=== PATIENT | female | born 1980 | race Caucasian/White ===

== ENCOUNTER → 2019-01-27 | Outpatient (CLI) | payer OTHER ==
--- NOTE | 2019-01-28 08:29 | MM ---
Reason for exam: screening (asymptomatic). Baseline mammogram. History: Benign excisional biopsy of the right breast, 2012. Took hormonal contraceptives beginning at age 15. Physical Findings: Nurse did not find any significant physical abnormalities on exam. MG 3D Screening Mammo W/Cad Bilateral CC and MLO view(s) were taken. The breast tissue is extremely dense which could obscure a lesion on mammography. Benign appearing calcifications in the right breast. Left axillary accessory breast tissue. These results were verbally communicated with the patient and result sheet given to the patient on 01/27/19. ASSESSMENT: Benign, BI-RAD 2 RECOMMENDATION: Routine screening mammogram of both breasts in 1 year.
== END | disposition home or self-care (01) ==
LOC: RADMAMWWP 15:18
PROVIDERS: ATTEND Family Medicine
DX: Z12.31 Encounter for screening mammogram for malignant neoplasm of breast (principal); Z98.890 Other specified postprocedural states
CPT/HCPCS: 77063; 77067

== ENCOUNTER → 2019-03-19 | Outpatient (CLI) | payer OTHER ==
[2019-03-19 16:31] LABS: Basophils % (A) 1 %; Eosinophils # (A) 0.3 k/uL (0-0.7); Eosinophils % (A) 4 %; HCT 37.1 % (34.0-46.0); HGB 12.3 gm/dL (11.4-16.0); Lymphocytes # (A) 2.3 k/uL (1.0-4.8); Lymphocytes % (A) 32 %; MCH 31.9 pg (25.0-35.0); MCV 96.6 fL (80.0-100.0); Mean Platelet Volume 7.6; Monocytes # (A) 0.3 k/uL (0-1.0); Monocytes % (A) 4 %; Neutrophils # (A) 4.2 k/uL (1.3-7.7); Neutrophils % (A) 58 %; Platelet Count 305 k/uL (150-450); RBC 3.84 m/uL (3.80-5.40); RDW 13.7 % (11.5-15.5); WBC 7.2 k/uL (3.8-10.6)
[2019-03-19 23:45] LABS: African American GFR (CKD) 125.6 (60.0-200.0); Anion Gap 6.4 mmol/L (4.00-12.00); Calcium 8.8 mg/dL (8.7-10.3); Carbon Dioxide 27.6 mmol/L (21.6-31.8); Potassium 3.5 mmol/L (3.5-5.5)
== END | disposition home or self-care (01) ==
LOC: LABWHC1 16:01
PROVIDERS: ATTEND Obstetrics & Gynecology
DX: Z01.812 Encounter for preprocedural laboratory examination (principal)
CPT/HCPCS: 36415; 80048; 85025

== ENCOUNTER 2019-03-26 07:56 | Observation (INO) | payer OTHER ==
[2019-03-18 15:44] VITALS: BMI 23.6
--- NOTE | 2019-03-25 16:59 | P.HPOB ---
History of Present Illness H&P Date: 03/25/19 Chief Complaint: Pelvic pain and fibroids Katarzyna is a 38-year-old female who has a 5 cm fibroid noted on ultrasound and she has a long history of very heavy vaginal bleeding. That stated, her bigger problem right now is that she has severe pain each time she has a cycle due to how heavy the bleeding as and passage of clots. She is unable to function well and with an enlarged uterus she has scheduled a robotic-assisted laparoscopic hysterectomy possible STUART and BSO. Likely remove fallopian tubes at the same time. Risks/benefits/alternatives were reviewed with the patient in detail all questions were answered for her prior to proceeding to the operative room. She does have a history of sections 2 which does increase her risk for bladder injury and she is already aware of this. On physical exam vital signs are stable and afebrile. Heart regular, lungs clear, extremities without pain. Abdomen soft and nontender. Positive bowel sounds are noted. Pelvic exam is otherwise unremarkable. Assessment fibroid uterus and pelvic pain Robotic-assisted laparoscopic hysterectomy possible STUART possible BSO Past Medical History Past Medical History: No Reported History History of Any Multi-Drug Resistant Organisms: None Reported Past Surgical History: Breast Surgery, Section Additional Past Surgical History / Comment(s): benign lump removed from breast, C/S x2 Past Anesthesia/Blood Transfusion Reactions: No Reported Reaction Smoking Status: Current every day smoker - Past Family History Mother Family Medical History: No Reported History Medications and Allergies Home Medications Medication Instructions Recorded Confirmed Type No Known Home Medications 03/18/19 03/18/19 History Allergies Allergy/AdvReac Type Severity Reaction Status Date / Time No Known Allergies Allergy Verified 03/18/19 15:21 Exam Osteopathic Statement: *. No significant issues noted on an osteopathic structural exam other than those noted in the History and Physical/Consult.
[~2019-03-26 07:56] MED LIST: DEXAMETHASONE SOD PHOSPHATE 10 MG/ML 1 ML VIAL IV ONE; LIDOCAINE 1% 20 ML VIAL (10MG/ML) FOR IV START INTRADERMA PRN; ONDANSETRON 4 MG/2 ML VIAL IVP ONE; SCOPOLAMINE 1.5MG/72HR PATCH TRANSDERM ONE
[2019-03-26] MEDS: LACTATED RINGERS 1,000 ML IV SCH (08:47)
[2019-03-26] MEDS ORDERED: MIDAZOLAM (PF) 2 MG/2 ML VIAL IV ONE (08:57)
[2019-03-26] MEDS ORDERED: PROPOFOL 10 MG/ML 20 ML VIAL IV ONE (10:09)
[2019-03-26] MEDS ORDERED: GLYCOPYRROLATE 0.2 MG/ML 2 ML VIAL ONE (10:09)
[2019-03-26] MEDS ORDERED: NEOSTIGMINE 1 MG/ML 10 ML VIAL ONE (10:09)
[2019-03-26] MEDS ORDERED: ROCURONIUM BROMIDE 10 MG/ML 10 ML VIAL IV ONE (10:09)
[2019-03-26] MEDS ORDERED: MIDAZOLAM 2 MG/2 ML VIAL ONE (10:09)
[2019-03-26] MEDS ORDERED: fentaNYL (PF) 50 MCG/ML 2 ML AMP ONE (10:09)
[2019-03-26] MEDS ORDERED: SUCCINYLCHOLINE CHLORIDE 100 MG/5 ML SYR IV ONE (10:09)
[2019-03-26] MEDS ORDERED: PHENYLEPHRINE-0.9% NACL SYG 1 MG/10 ML SYRINGE ONE (10:09)
[2019-03-26] MEDS ORDERED: BUPIVACAINE (PF) 0.25% 30 ML VIAL SQ ONE (10:49)
[2019-03-26] MEDS ORDERED: LACTATED RINGERS 1,000 ML IV ONE (11:45)
[2019-03-26] MEDS ORDERED: ONDANSETRON 4 MG/2 ML VIAL IVP PRN (11:47)
--- NOTE | 2019-03-26 12:00 | P.OP ---
Date of Procedure: 03/26/19 Preoperative Diagnosis: Menorrhagia, pelvic pain, fibroid uterus Postoperative Diagnosis: Same Procedure(s) Performed: Robotic-assisted laparoscopic hysterectomy with bilateral salpingectomy Anesthesia: JENNA Surgeon: Ever Wallace Legal Support Manager #1: Theresa Rodriguez Estimated Blood Loss (ml): 50 IV fluids (ml): 1,100 Urine output (ml): 50 Pathology: other (Uterus, cervix, fallopian tubes) Condition: stable Disposition: same day Operative Findings: Scarring of the appendix and a; scissor right abdominal sidewall no other gross findings tissue pathology pending Description of Procedure: Patient was taken to the operating suite where a general anesthetic was found be adequate. She was prepped and draped in normal sterile fashion and placed in dorsal lithotomy position. Initially a weighted speculum was inserted into the vagina and into lip of cervix was identified and grasped with a single-tooth tenaculum. Cervix was then dilated and sounded to 10 cm and a Ronda manipulator was inserted with a 10 cm tip and a 3 cm cup. Stay sutures were placed at 3 and 9. Other instruments were then removed and Forte catheter was placed. Gloves were then changed and attention was turned to the abdominal portion procedure where 2 mL a course of Marcaine was injected 1 cm of the above the umbilicus. Through this a 5 mm skin incision was made and through this incision under direct visualization with an optical trocar and sleeve the camera was inserted. Once peritoneal placement was assured gas was left fully insufflate the abdomen and patient was then placed in steep Trendelenburg position. 2 lateral ports were then placed on the plane of the umbilicus 10 cm lateral on both right and left side and then a fourth port and sleeve was placed between the left lateral and the medial port. This was through once meter incision. Camera port was exchanged for a robotic port and robot was brought in and docked. Using a scissor and the one arm and Maryland grasper in the 2 arm I broke scrub and went to the console. Observations pelvis were noted. Uterus was then elevated and tipped the right-hand side and the fallopian tube was elevated and cauterizing through the mesosalpinx fallopian tube was cut and cauterized to 2 cm from uterine cornu and then excised and removed from the operative field as was occluding condition. Once this was accomplished utero-ovarian ligament was identified cauterized and cut probably with tissues to the round ligament was then cauterized and cut around leg was again cauterized and transected. Anterior and posterior leafs of the broad lid were then developed and skeletonization vascular was done. Some cauterization the uterine vascular and the left side was then accomplished and bladder flap was identified elevated and entered with Metzenbaums mom scissor. This opening was then extended across the face the uterus using Maryland undermining the tissue and scissor to expel in size. Once all the way across the uterus bladder was bluntly dissected out of the operative field. In a similar fashion the right side of the uterus was then developed. Verifying bladder out of the operative field balloon was blown up in the Ronda manipulator and the cup was identified. Anterior colpotomy was then done and then this opening was carried around the cervix in a counterclockwise fashion circumferentially until 360 was completed. When necessary she had was done to maintain excellent hemostasis throughout this process. Once fully completed uterus was brought into the vagina to maintain pneumoperitoneum. Irrigation and suction the fluid was then performed good hemostasis was noted across all pedicles. Instruments were then exchanged for a make suture cut and Jose Luis grasper and the vaginal cuff was closed with 20 the lock suture in a running fashion. Once completed again the pelvis was irrigated. No bleeding is noted. Therefore all instruments removed gas was allowed to expel from the abdomen. 5 deep breaths were provided during this process. Dr. Rodriguez then close incision subcuticularly with 4-0 Vicryl following removal of the robot from the field. Concurrently I did a cystoscopy and excellent flow was noted from both ureteral jets. The remaining 8 mL of quarter percent Marcaine was injected around the incisions. Sponge, lap, needle counts were all correct 2. Patient was then taken to the recovery room in stable and satisfactory condition.
[2019-03-26] MEDS: HYDROmorphone 0.5 MG/0.5 ML SYRINGE IVP PRN ×4 (12:13→12:48)
[2019-03-26] MEDS: KETOROLAC 30 MG/ML 1 ML VIAL IVP PRN ×2 (12:19→20:35)
[2019-03-26] MEDS: SENNOSIDES-DOCUSATE SODIUM 1 EACH TAB PO SCH (20:34)
[2019-03-26 22:43] VITALS: RESP 18
[2019-03-27] MEDS: KETOROLAC 30 MG/ML 1 ML VIAL IVP PRN (04:41)
[2019-03-27] MEDS: LACTATED RINGERS 1,000 ML IV SCH (04:59)
[2019-03-27] MEDS: SENNOSIDES-DOCUSATE SODIUM 1 EACH TAB PO SCH (08:09)
[2019-03-27] MEDS ORDERED: IBUPROFEN 600 MG TAB PO PRN (08:09)
[2019-03-27] MEDS: HYDROcodone/APAP 7.5-325MG 1 EACH TAB PO PRN ×2 (08:09→14:07)
--- NOTE | 2019-03-27 08:14 | P.DS ---
Providers Date of admission: 03/27/19 04:41 Expected date of discharge: 03/27/19 Attending physician: Ever Wallace Primary care physician: Shavonne Leyva - Discharge Diagnosis(es) (1) History of robot-assisted laparoscopic hysterectomy Current Visit: Yes Status: Acute Hospital Course: Pt presented for TLH BS with da leeanna. She underwent this procedure without complication. Postoperatively her pain was controlled with Toradol at first and then Hope and Motrin. Her incisions are clean, dry, intact. She is voiding and ambulating without difficulty. She denies nausea, vomiting, chest pain, shortness of breath or calf pain. She'll be discharged home postoperative day #1 in stable condition to follow-up with Dr. Wallace in 1 week. Patient Condition at Discharge: Good Plan - Discharge Summary Discharge Rx Participant: Yes New Discharge Prescriptions: New Ibuprofen [Motrin] 600 mg PO Q6H PRN #30 tab PRN Reason: Pain HYDROcodone/APAP 7.5-325MG [Hope 7.5-325] 1 each PO Q6H PRN #12 tab PRN Reason: SEVERE Pain Discharge Medication List HYDROcodone/APAP 7.5-325MG [Hope 7.5-325] 1 each PO Q6H PRN #12 tab 03/27/19 [Rx] Ibuprofen [Motrin] 600 mg PO Q6H PRN #30 tab 03/27/19 [Rx] Follow up Appointment(s)/Referral(s): Ever Wallace DO [Doctor of Osteopathic Medicine] - 1 Week Discharge Disposition: HOME SELF-CARE
[2019-03-27 08:53] VITALS: TEMP 98
[2019-03-27] MEDS: NICOTINE 21MG/24HR PATCH TRANSDERM SCH ×2 (14:06→14:21)
[2019-03-27 14:35] VITALS: BP 116/64; PULSE 72
== END 2019-03-27 14:40 | disposition home or self-care (01) ==
LOC: OR 07:56 → 4FBP 11:44 → OR 03-27 04:41
PROVIDERS: ADMIT Obstetrics & Gynecology; ATTEND Obstetrics & Gynecology
DX: D25.1 Intramural leiomyoma of uterus (principal); D25.2 Subserosal leiomyoma of uterus; N80.0 Endometriosis of uterus; N72 Inflammatory disease of cervix uteri; N83.8 Other noninflammatory disorders of ovary, fallopian tube and broad ligament; N92.0 Excessive and frequent menstruation with regular cycle; F17.200 Nicotine dependence, unspecified, uncomplicated
CPT/HCPCS: 58552; S2900; 81025; 86850; 86900; 86901; 88307

== ENCOUNTER → 2020-04-05 | Outpatient (CLI) | payer OTHER ==
--- NOTE | 2020-04-06 13:11 | CT ---
EXAMINATION TYPE: CT abdomen pelvis w con DATE OF EXAM: 04/05/2020 COMPARISON: None. HISTORY: Abdominal and back pain, abdominal bloating. Abdominal distention. CT DLP: 526.1 mGycm Automated exposure control for dose reduction was used. TECHNIQUE: Helical acquisition of images was performed from the lung bases through the pelvis. CONTRAST: Performed with Oral Contrast and with IV Contrast, patient injected with 100 mL of Isovue 300. FINDINGS: LUNG BASES: Normal. LIVER: Normal. BILIARY SYSTEM: Normal. PANCREAS: Normal. SPLEEN: Normal. ADRENALS: Normal. KIDNEYS: Normal. BOWEL: No evidence of obstruction or inflammation. PERITONEUM: No free air is visualized. No free fluid. ADENOPATHY: No lymphadenopathy. PELVIS: Normal distended urinary bladder. Status post hysterectomy. 1.3 cm rim-enhancing follicle of the left ovary likely benign corpus luteal cyst. Right ovary unremarkable. VASCULATURE: No abdominal aortic aneurysm. MUSCULOSKELETAL: No acute osseous abnormality. IMPRESSION: No acute abdominopelvic findings to explain patient's abdominal distention or pain.
== END | disposition home or self-care (01) ==
LOC: RADCTMAIN 09:35
PROVIDERS: ATTEND Family Medicine
DX: R19.7 Diarrhea, unspecified (principal); R14.0 Abdominal distension (gaseous); R10.9 Unspecified abdominal pain
CPT/HCPCS: 74177; Q9967

== ENCOUNTER 2020-04-27 07:29 | Day surgery (SDC) | payer OTHER ==
[2020-04-25 13:14] VITALS: BMI 24.7
[~2020-04-27 07:29] MED LIST changes: -DEXAMETHASONE SOD PHOSPHATE 10 MG/ML 1 ML VIAL IV ONE; +LIDOCAINE 1% (10MG/ML) FOR IV START INTRADERMA PRN; -LIDOCAINE 1% 20 ML VIAL (10MG/ML) FOR IV START INTRADERMA PRN; -ONDANSETRON 4 MG/2 ML VIAL IVP ONE; -SCOPOLAMINE 1.5MG/72HR PATCH TRANSDERM ONE
[2020-04-27 08:01] VITALS: TEMP 97
[2020-04-27] MEDS: LACTATED RINGERS 1,000 ML IV SCH ×2 (08:11→08:36)
[2020-04-27] MEDS ORDERED: PROPOFOL 10 MG/ML 20 ML VIAL IV ONE (08:37)
[2020-04-27] MEDS ORDERED: LIDOCAINE 1% INJ 10MG/ML (20 ML MDV) ONE (08:37)
--- NOTE | 2020-04-27 09:05 | P.PCN ---
Date of Procedure: 04/27/20 Procedure(s) Performed: Brief history: Patient is a pleasant 39-year-old pleasant white female scheduled for an elective upper endoscopy as well as colonoscopy as a part of evaluation of abdominal pain, abdominal bloating, intermittent heartburn and change in bowel habits for the last 2 years duration. She was recently started on omeprazole 20 mg daily and symptoms are gradually improving. Procedure performed: Esophagogastroduodenoscopy with biopsy Colonoscopy Preoperative diagnosis: GERD Abdominal pain abdominal bloating and change in bowel habits Anesthesia: MAC Procedure: After informed consent was obtained from the patient was brought into the endoscopy unit and IV sedation was administered by anesthesia under continuous monitoring. Initially upper endoscopy was done. The Olympus GF 160 video endoscope was inserted inserted into the mouth and esophagus intubated without any difficulty and was gradually advanced into the stomach and duodenum and carefully examined. The bulb and second part of the duodenum appeared normal. Biopsies were done from the duodenum to rule out celiac disease The scope was then withdrawn into the stomach adequately insufflated with air and upon careful examination the antrum had mild gastritis and biopsies were done from this area. The body, cardia and fundus appeared normal. The scope was then withdrawn into the esophagus. The GE junction was located at 40 cm to the incisors. It appeared regular with superficial erosions consistent with LA grade B reflux esophagitis. Rest of the esophagus appeared normal. Patient tolerated the procedure well. At this time the patient continued to remain sedation. Initial digital rectal examination was normal. Olympus CF 160 video colonoscope was then inserted into the rectum and gradually advanced to the cecum without any difficulty. Careful examination was performed as the scope was gradually being withdrawn. The prep was excellent. The cecum, ascending colon, transverse colon, descending colon, sigmoid colon and rectum appeared normal. Retroflexion was performed in the rectum and no lesions were noted. Patient tolerated the procedure well. Impression: 1. Upper endoscopy revealed mild antral gastritis and LA grade B reflux esophagitis 2. Colonoscopy revealed normal-appearing colon from rectum to cecum with no evidence of colitis or colorectal neoplasia Recommendations: Findings of this examination were discussed with the patient as well as a family. She was advised to follow with the biopsy results. She will continue with omeprazole 20 mg daily and follow antireflux measures. She'll be seen in office in 2 weeks.
[2020-04-27 09:21] VITALS: BP 109/77; PULSE 83; RESP 16
== END 2020-04-27 09:51 | disposition home or self-care (01) ==
LOC: ORWHC2ENDO 07:29
PROVIDERS: ATTEND Internal Medicine Gastroenterology
DX: K29.50 Unspecified chronic gastritis without bleeding (principal); K21.00 Gastro-esophageal reflux disease with esophagitis, without bleeding; K22.10 Ulcer of esophagus without bleeding; R19.4 Change in bowel habit; Z79.899 Other long term (current) drug therapy; Z90.710 Acquired absence of both cervix and uterus
CPT/HCPCS: 88305; 45378; 43239; J2001; J2704

== ENCOUNTER → 2023-09-10 | Outpatient (CLI) | payer BC ==
--- NOTE | 2023-09-10 10:19 | MM ---
Reason for Exam: Clinical finding. Last mammogram was performed 4 year(s) and 7 month(s) ago. Patient History: Menarche at age 12. First Full-Term at age 19. Hysterectomy at age 39. Hormonal Contraceptives, from age 15 until age 38. 2012, Benign Excisional Biopsy on the right side. Paternal grandmother had breast cancer. Risk Values: Elvira 5 year model risk: 1.0%. NCI Lifetime model risk: 9.5%. Prior Study Comparison: 01/27/2019 Bilateral Screening Mammogram, [facility]. Tissue Density: The breast tissue is heterogeneously dense. This may lower the sensitivity of mammography. Findings: Analyzed By CAD. On 3-D images, an obscured 1.7 cm circumscribed mass becomes apparent that the upper outer quadrant middle depth. Area of concern along the left axilla where there appears to be some accessory fibroglandular tissue. Asymmetric density inferior left MLO view does not persist on additional views. Otherwise, no significant change from prior exam. Overall Assessment: Incomplete: need additional imaging evaluation, BI-RAD 0 Management: Diagnostic Breast Ultrasound of the left breast. Upper-outer quadrant including the area of concern. Electronically signed and approved by: Kadi Esteban M.D. Radiologist
--- NOTE | 2023-09-10 11:00 | USB ---
Reason for Exam: Additional evaluation requested from prior study. Patient History: Menarche at age 12. First Full-Term at age 19. Hysterectomy at age 39. Hormonal Contraceptives, from age 15 until age 38. 2013, Benign Excisional Biopsy on the right side. Paternal grandmother had breast cancer. Risk Values: Elvira 5 year model risk: 1.0%. NCI Lifetime model risk: 9.5%. Technique: Method: Targeted. Prior Study Comparison: 01/27/2019 Bilateral Screening Mammogram, [facility]. Findings: The lateral section of the breast of the left breast, the axilla of the left breast and the retroareolar of the left breast were scanned. Targeted ultrasound lateral aspect of the left breast 12:00 to 6:00 00 including scanning of the subareolar region and axilla. * Some underlying duct ectasia is demonstrated. * At the 12:00 position, 5 cm from the nipple, there is a cyst cluster measuring 1.5 x 1.3 x 0.7 cm. * At the 1:00 position, 4 cm from the nipple, there is an oval, circumscribed, hypoechoic mass with through transmission measuring 1.5 x 1.6 x 1.1 cm, likely mammographic correlate. Tissue sampling is recommended. A fibroadenoma is possible. * No discrete abnormality is identified at the patient's 2:00 palpable site, a 10 m from the nipple. Dense tissue is present. * Additional scanning at the 5:00 position area of patient's pain, 8 cm from the nipple shows no discrete abnormality. * No axillary adenopathy. Overall Assessment: Suspicious, BI-RAD 4 Management: Ultrasound Core Biopsy of the left breast. 1:00 mass, suspect mammographic correlate, possible fibroadenoma. Further clinical management of patient's 5:00 left breast pain. Electronically signed and approved by: Kadi Esteban M.D. Radiologist
== END | disposition home or self-care (01) ==
LOC: RADMAMWWP 09:27
PROVIDERS: ATTEND Family Medicine
DX: N64.4 Mastodynia (principal); N63.0 Unspecified lump in unspecified breast; Z80.3 Family history of malignant neoplasm of breast
CPT/HCPCS: 77062; 77066

== ENCOUNTER → 2023-09-25 | Day surgery (SDC) | payer BC ==
--- NOTE | 2023-09-30 10:13 | MM ---
Reason for Exam: Post Procedure Mammogram. Last screening mammogram was performed less than 1 month ago. Patient History: Menarche at age 12. First Full-Term at age 19. Hysterectomy at age 39. Hormonal Contraceptives, from age 15 until age 38. 2012, Benign Excisional Biopsy on the right side. Paternal grandmother had breast cancer. Risk Values: Elvira 5 year model risk: 1.0%. NCI Lifetime model risk: 9.5%. Prior Study Comparison: 01/27/2019 Bilateral Screening Mammogram, [facility]. 09/10/2023 Bilateral MG 3D diag mammo w/cad [place], [facility]. 09/10/2023 Left US breast limited LT, [facility]. Tissue Density: Left: The breasts are heterogeneously dense, which may obscure small masses. Pathology Description: Location: 1 o'clock. Needle Type: Celero Cores: 3 Gauge: 12 The procedure of ultrasound guided core biopsy was explained to the patient. Benefits, alternatives, and risks were discussed. An informed consent was then obtained. The patient was placed in supine positioning for imaging and for the procedure. The overlying skin was prepped and draped in usual sterile fashion. Lidocaine buffered with bicarbonate was used as anesthetic into the skin and subcutaneous tissue up to area of concern in the left 1:00 breast . A sheba was made with surgical scalpel. Under ultrasound guidance, a 12-gauge vacuum assisted biopsy gun device was used to obtain 3 core samples. Following this, a biopsy clip was left in lesion. The patient tolerated the procedure well without any immediate complication. The patient was kept in the radiology department for short stay after the procedure and then discharged home in stable condition. Postprocedure mammogram: The patient was transferred to mammography for physician ordered post procedure mammogram for clip placement verification. Impression: Successful, uncomplicated ultrasound guided core biopsy of area of concern in the left 1:00 breast, full pathology results to follow. Pathology Results: Result: Benign, Fibroadenoma. LEFT BREAST ONE O'CLOCK, ULTRASOUND GUIDED NEEDLE CORE BIOPSY: Fibroadenoma. Overall Assessment: Benign Assessment: MG diagnostic mammo LT wo CAD. - Left: Benign, BI-RAD 2. Management: Diagnostic Breast Ultrasound of the left breast in 6 months. Electronically signed and approved by: Kael Garza M.D. Radiologis
== END ==
LOC: RADUSWWP 10:15
PROVIDERS: ATTEND Family Medicine
DX: D24.2 Benign neoplasm of left breast (principal)
CPT/HCPCS: 88305; 77065; 19083; A4648

== ENCOUNTER 2025-02-01 07:56 | Day surgery (SDC) | payer OTHER ==
[2025-01-29 10:29] VITALS: BMI 26.9
[2025-02-01] MEDS ORDERED: LIDOCAINE 1% (10MG/ML) FOR IV START INTRADERMA PRN (08:16)
[2025-02-01 08:21] VITALS: TEMP 97.9
[2025-02-01] MEDS: LACTATED RINGERS 1,000 ML IV SCH (08:28)
[2025-02-01] MEDS: IV FLUID CONTINUATION 1,000 ML IV ONE (08:28)
--- NOTE | 2025-02-01 08:48 | P.GSHP ---
History of Present Illness H&P Date: 02/01/25 CHIEF COMPLAINT: Dysphagia and colon screen HISTORY OF PRESENT ILLNESS: The patient is a 44-year-old female who presents with dysphagia, gastroesophageal reflux disease and need for colon screen. Upper and lower endoscopy were offered for further evaluation and management. PAST MEDICAL HISTORY: Please see list. PAST SURGICAL HISTORY: Please see list. MEDICATIONS: Please see list. ALLERGIES: Please see list. SOCIAL HISTORY: No illicit drug use FAMILY HISTORY: No reports of Crohn disease or ulcerative colitis. REVIEW OF ORGAN SYSTEMS: CONSTITUTIONAL: No reports of fevers or chills. GI: Denies any blood in stools or constipation. PHYSICAL EXAM: VITAL SIGNS: Stable GENERAL: Well-developed pleasant in no acute distress. HEENT: No scleral icterus. Extraocular movements grossly intact. Moist buccal mucosa. NECK: Supple without lymphadenopathy. CHEST: Unlabored respirations. Equal bilateral excursions. CARDIOVASCULAR: Regular rate and rhythm. Distal 2+ pulses. ABDOMEN: Soft, nondistended. MUSCULOSKELETAL: No clubbing, cyanosis, or edema. ASSESSMENT: 1. Dysphagia and gastroesophageal reflux disease 2. Colon screen. PLAN: 1. Recommend proceeding with an upper and lower endoscopy Past Medical History Past Medical History: GERD/Reflux Additional Past Medical History / Comment(s): Abdominal discomfort, changes in bowel habits for last 6 months- 1 yr. Tendonitis right thumb, wearing a brace. History of Any Multi-Drug Resistant Organisms: None Reported Past Surgical History: Breast Surgery, Section, Hysterectomy Additional Past Surgical History / Comment(s): Right breast lumpectomy(benign) right breast biopsy, section X2, colonoscopy. Past Anesthesia/Blood Transfusion Reactions: No Reported Reaction Additional Past Anesthesia/Blood Transfusion Reaction / Comment(s): Cannot lay flat on back - has trouble breathing. Past Psychological History: ADD/ADHD, Anxiety Additional Psychological History / Comment(s): ADHD. Smoking Status: Current every day smoker Past Alcohol Use History: Occasional Additional Past Alcohol Use History / Comment(s): Smoker of 1ppd for 30 years. Past Drug Use History: Marijuana Additional Drug Use History / Comment(s): Rare Marijuana use, aware no use 24 hrs prior to procedure. - Past Family History Mother Family Medical History: No Reported History Medications and Allergies Home Medications Medication Instructions Recorded Confirmed Type Dextroamphetamine/Amphetamine 20 mg PO DAILY 09/12/23 02/01/25 History [Adderall] Allergies Allergy/AdvReac Type Severity Reaction Status Date / Time prednisone Allergy Swelling Verified 02/01/25 08:17 Surgical - Exam Vital Signs Temp Pulse Resp BP Pulse Ox 97.9 F 68 16 118/69 98 02/01/25 08:20 02/01/25 08:20 02/01/25 08:20 02/01/25 08:20 02/01/25 08:20
[2025-02-01] MEDS ORDERED: PROPOFOL 10 MG/ML 20 ML VIAL IV ONE (08:49)
[2025-02-01] MEDS ORDERED: LIDOCAINE 2% (PF) 20 MG/ML 5 ML VIAL ONE (08:49)
--- NOTE | 2025-02-01 09:03 | P.PCN ---
Date of Procedure: 02/01/25 Description of Procedure: PREOPERATIVE DIAGNOSIS: Gastroesophageal reflux disease. Dysphagia POSTOPERATIVE DIAGNOSIS: Gastroesophageal reflux disease. Gastritis. OPERATION: Esophagogastroduodenoscopy with cold forceps biopsies along esophagus, antrum and duodenum SURGEON: Diana Irizarry MD ANESTHESIA: MAC. INDICATIONS: The patient is a 44-year-old female who presents with dysphagia and reflux disease. Benefits and risks of the procedure were described. Informed consent was obtained. DESCRIPTION: The patient was brought into the endoscopy suite and laid in the left lateral decubitus position. An Olympus gastroscope was passed along the posterior oropharynx down to the distal esophagus where the squamocolumnar junction was encountered at 37 cm from the incisors. The stomach was entered and no bile reflux was found. Additional findings are listed below. Biopsies with cold forceps were obtained of the antrum. The first through third portion of the duodenum was examined. Retroflexion of the scope confirmed Hill grade 3 lower esophageal valve. The squamocolumnar junction demonstrated LA grade C erosive esophagitis. The stomach was desufflated. The patient tolerated the procedure well. FINDINGS: Squamocolumnar junction 37 cm from the incisors. Diaphragmatic hiatus at 37 cm. Hill grade 4 lower esophageal valve. LA grade C erosive esophagitis. Biopsies obtained of the duodenum. Chronic gastritis with biopsies obtained. RECOMMENDATIONS: Upper endoscopy as needed.
[2025-02-01 09:19] VITALS: RESP 14
[2025-02-01 09:33] VITALS: BP 111/61; PULSE 84
--- NOTE | 2025-02-01 10:17 | P.PCN ---
Date of Procedure: 02/01/25 Description of Procedure: PREOPERATIVE DIAGNOSIS: Change in bowel habits POSTOPERATIVE DIAGNOSIS: Colitis OPERATION: Colonoscopy to the cecum, ileocecal valve and appendiceal orifice. Colonoscopy with random cold forceps biopsies for colitis SURGEON: Diana Irizarry MD. ANESTHESIA: MAC. INDICATIONS: The patient is a 44-year-old female who presents with change in bowel habits. Benefits and risks were described and informed consent was obtained. DESCRIPTION OF PROCEDURE: The patient had undergone Suprep. The patient had been brought into the operating room and laid in the left lateral decubitus position. After adequate intravenous sedation, the rectum was examined with 2% lidocaine jelly. No external hemorrhoids were encountered. The rectal tone was within normal limits. No lesions were palpated in the rectal vault. An Olympus colonoscope was advanced until the cecum, ileocecal valve and appendiceal orifice were clearly viewed. The prep was excellent. No scattered diverticulosis was encountered. No colonic polyps were found. Cold forceps biopsies randomly were obtained for microscopic colitis. Retroflexion of the scope demonstrated grade 1 internal hemorrhoids without active bleeding or inflammation. The colon was desufflated. The patient had tolerated the procedure well. Withdrawal time was over 6 minutes. FINDINGS: Aronchick preparation quality scale 1 (1-5) Internal hemorrhoids, grade 1 No external prolapsed hemorrhoids. No arteriovenous malformations. No adenomatous polyps. Cold forceps biopsies obtained for microscopic colitis RECOMMENDATIONS: Lower endoscopy in 2029 Plan - Discharge Summary Discharge Rx Participant: Yes New Discharge Prescriptions: Continue Dextroamphetamine/Amphetamine [Adderall] 20 mg PO DAILY Discharge Medication List Dextroamphetamine/Amphetamine [Adderall] 20 mg PO DAILY 09/12/23 [History] Follow up Appointment(s)/Referral(s): Diana Irizarry MD [STAFF PHYSICIAN] - 02/05/25 (Surgery day for ailyn cystectomy) Patient Instructions/Handouts: Gastritis (DC) Activity/Diet/Wound Care/Special Instructions: Repeat colonoscopy years2029 Discharge Disposition: HOME SELF-CARE
== END 2025-02-01 10:37 | disposition home or self-care (01) ==
LOC: ORWHC2ENDO 07:56
PROVIDERS: ATTEND Surgery Plastic and Reconstructive Surgery
DX: K29.50 Unspecified chronic gastritis without bleeding (principal); K21.00 Gastro-esophageal reflux disease with esophagitis, without bleeding; K64.1 Second degree hemorrhoids; F41.9 Anxiety disorder, unspecified; F17.210 Nicotine dependence, cigarettes, uncomplicated; F90.9 Attention-deficit hyperactivity disorder, unspecified type; F12.90 Cannabis use, unspecified, uncomplicated; Z90.710 Acquired absence of both cervix and uterus; Z88.8 Allergy status to other drugs, medicaments and biological substances; Z79.899 Other long term (current) drug therapy
CPT/HCPCS: 88305; 45380; 43239; J2704; J2003

== ENCOUNTER 2025-02-05 06:04 | Day surgery (SDC) | payer OTHER ==
[2025-01-29 10:41] VITALS: BMI 26.9
[~2025-02-05 06:04] MED LIST changes: +LACTATED RINGERS 1,000 ML IV SCH; +ONDANSETRON 4 MG/2 ML VIAL IVP ONE
[2025-02-05] MEDS: LACTATED RINGERS 1,000 ML IV SCH (06:38)
[2025-02-05] MEDS: HEPARIN SODIUM,PORCINE 5,000 UNIT/ML 1 ML VIAL SQ PRN (06:39)
[2025-02-05] MEDS: ONDANSETRON 4 MG/2 ML VIAL IVP PRN (06:39)
[2025-02-05] MEDS: ACETAMINOPHEN TAB 500 MG TAB PO PRN (06:39)
[2025-02-05] MEDS: IV FLUID CONTINUATION 1,000 ML IV ONE ×2 (06:44→09:05)
[2025-02-05] MEDS ORDERED: INDOCYANINE GREEN 25 MG VIAL IV STA (07:32)
--- NOTE | 2025-02-05 07:32 | P.GSHP ---
History of Present Illness H&P Date: 02/05/25 CHIEF COMPLAINT: Cholecystitis HISTORY OF PRESENT ILLNESS: The patient is a 44-year-old female who presents with history of epigastric including right upper quadrant abdominal pain. She underwent diagnostic studies for her gallbladder. Separately her clinical picture was consistent with cholecystitis. Now she presents for surgical intervention. PAST MEDICAL HISTORY: Please see list PAST SURGICAL HISTORY: Please see list MEDICATIONS: Please see list ALLERGIES: Please see list SOCIAL HISTORY: Please see list FAMILY HISTORY: Please see list REVIEW OF ORGAN SYSTEMS: CONSTITUTIONAL: No reports of fevers or chills. HEENT: Denies any troubles with the vision or hearing. ENDOCRINE: No reports of hypothyroidism. No diabetes. RESPIRATORY: No recent pneumonias. CARDIOVASCULAR: Denies chest pain or palpitations GI: No blood in stools or constipation. MUSCULOSKELETAL: Has occasional joint pain including back pain. NEURO: No seizure disorders or headaches. No recent stroke. PSYCH: No depression or suicidal ideation. GENITOURINARY: No active blood in urine. No urinary hesitancy. HEMATOLOGIC: No personal or family history of DVTs or pulmonary emboli. SKIN: No skin cancer. PHYSICAL EXAM: VITAL SIGNS: Afebrile vital signs stable GENERAL: Well-developed pleasant in no acute distress. HEENT: No scleral icterus. Extraocular movements grossly intact. Moist buccal mucosa. NECK: Supple without lymphadenopathy. CHEST: Unlabored respirations. Equal bilateral excursions. CARDIOVASCULAR: Regular rate regular rhythm rhythm. Distal 2+ pulses. ABDOMEN: Soft, nondistended. Tender along the epigastrium and right upper quadrant. MUSCULOSKELETAL: No clubbing, cyanosis, or edema. NEURO: Cranial nerves II to XII within normal limits. No focal or lateralizing signs. PSYCH: Alert and oriented to person, place and time. SKIN: Well-perfused good skin turgor. ASSESSMENT: 1. Epigastric and right upper quadrant abdominal pain 2. Chronic cholecystitis 3. Symptomatic gallstones. PLAN: 1. Will need a robotic cholecystectomy possible open. Benefits and risks were described. 2. Heparin for DVT prophylaxis 5000 units. 3. Antibiotic prophylaxis. 4. CBC and CMP on day of procedure 5. Non-narcotic pre and post op pain management reviewed. 6. Indocyanine green for biliary imaging. Past Medical History Past Medical History: GERD/Reflux Additional Past Medical History / Comment(s): Abdominal discomfort, changes in bowel habits for last 6 months- 1 yr. Tendonitis right thumb, wearing a brace. History of Any Multi-Drug Resistant Organisms: None Reported Past Surgical History: Breast Surgery, Section, Hysterectomy Additional Past Surgical History / Comment(s): Right breast lumpectomy(benign) right breast biopsy, section X2, colonoscopy. Past Anesthesia/Blood Transfusion Reactions: No Reported Reaction Additional Past Anesthesia/Blood Transfusion Reaction / Comment(s): Cannot lay flat on back - has trouble breathing. Past Psychological History: ADD/ADHD, Anxiety Additional Psychological History / Comment(s): ADHD. Smoking Status: Current every day smoker Past Alcohol Use History: Occasional Additional Past Alcohol Use History / Comment(s): Smoker of 1ppd for 30 years. Past Drug Use History: Marijuana Additional Drug Use History / Comment(s): Rare Marijuana use, aware no use 24 hrs prior to procedure. - Past Family History Mother Family Medical History: No Reported History Medications and Allergies Home Medications Medication Instructions Recorded Confirmed Type Dextroamphetamine/Amphetamine 20 mg PO DAILY 09/12/23 02/01/25 History [Adderall] Allergies Allergy/AdvReac Type Severity Reaction Status Date / Time prednisone Allergy Swelling Verified 02/05/25 06:19 Surgical - Exam Vital Signs Temp Pulse Resp BP Pulse Ox 97.3 F L 56 L 16 104/74 97 02/05/25 06:26 02/05/25 06:26 02/05/25 06:26 02/05/25 06:26 02/05/25 06:26
[2025-02-05] MEDS ORDERED: PHENYLEPHRINE 10 MG/ML VIAL ONE (07:51)
[2025-02-05] MEDS ORDERED: ROCURONIUM 10 MG/ML (5 ML VIAL) IV ONE (07:51)
[2025-02-05] MEDS ORDERED: LIDOCAINE 1% INJ 10MG/ML (20 ML MDV) ONE (07:51)
[2025-02-05] MEDS ORDERED: fentaNYL (PF) 50 MCG/ML 2 ML AMP ONE (07:51)
[2025-02-05] MEDS ORDERED: SUCCINYLCHOLINE CHLORIDE 200 MG/10 ML VIAL IV ONE (07:51)
[2025-02-05] MEDS ORDERED: HYDROmorphone (PF) 1 MG/ML ONE (07:51)
[2025-02-05] MEDS ORDERED: LIDOCAINE 4% LTA KIT (4 ML) TOPICAL ONE (07:51)
[2025-02-05] MEDS ORDERED: GLYCOPYRROLATE 0.2 MG/ML 2 ML VIAL ONE (07:51)
[2025-02-05] MEDS ORDERED: NEOSTIGMINE 1 MG/ML 10 ML VIAL ONE (07:51)
[2025-02-05] MEDS ORDERED: PROPOFOL 10 MG/ML 20 ML VIAL IV ONE (07:51)
[2025-02-05] MEDS ORDERED: MIDAZOLAM 2 MG/2 ML VIAL ONE (07:51)
[2025-02-05] MEDS: LIDOCAINE 1%-EPI 1:100,000 20 ML VIAL SQ ONE (07:51)
[2025-02-05 08:53] VITALS: TEMP 97
[2025-02-05] MEDS: HYDROmorphone 0.5 MG/0.5 ML SYRINGE IVP PRN (09:00)
[2025-02-05 09:32] VITALS: RESP 16
[2025-02-05 10:18] VITALS: BP 98/62; PULSE 56
[2025-02-05 10:55] LABS: Basophils # (A) 0.05 10*3/uL (0.00-0.10); Basophils % (A) 0.4 %; Eosinophils # (A) 0.42 10*3/uL (0.04-0.35); Eosinophils % (A) 3.6 %; HCT 39.8 % (37.2-46.3); HGB 13.6 g/dL (12.0-15.0); Lymphocytes # (A) 4.70 10*3/uL (0.90-5.00); Lymphocytes % (A) 40.0 %; MCH 31.8 pg (27.0-32.0); MCHC 34.2 g/dL (32.0-37.0); MCV 93.0 fL (80.0-97.0); Monocytes # (A) 0.93 10*3/uL (0.20-1.00); Monocytes % (A) 7.9 %; Neutrophils # (A) 5.61 10*3/uL (1.80-7.70); Neutrophils % (A) 47.8 %; Platelet Count 334 10*3/uL (140-440); RBC 4.28 10*6/uL (4.10-5.20); RDW 12.7 % (11.5-14.5); WBC 11.74 10*3/uL (4.50-10.00)
--- NOTE | 2025-02-05 10:56 | P.OP ---
Date of Procedure: 02/05/25 Description of Procedure: SURGEON: DIANA IRIZARRY MD PREOPERATIVE DIAGNOSES: 1. Symptomatic gallstones 2. Right upper quadrant abdominal pain 3. Chronic abdominal distention 4. ADD with ADHD 5. Generalized anxiety disorder 6. Chronic tobacco abuse disorder 7. Gastroesophageal reflux disease POSTOPERATIVE DIAGNOSES: 1. Chronic cholecystitis with gallstones 2. Severe fatty liver disease 3. Hepatomegaly due to fatty liver disease 4. ADD with ADHD 5. Generalized anxiety disorder 6. Chronic tobacco abuse disorder 7. Gastroesophageal reflux disease 8. Chronic abdominal distention OPERATION: Robotic-assisted da Gilmar Xi laparoscopic cholecystectomy, multiport with FIREF LY ESTIMATED BLOOD LOSS: 5 mL. SPECIMENS REMOVED: Gallbladder. COMPLICATIONS: None. OPERATIVE FINDINGS: 1. Severe fatty liver disease with hepatomegaly 2. Colonic distention of transverse colon INDICATIONS: The patient is a 44-year-old female who presents with chronic cholecystitis and right upper quadrant abdominal pain abdominal distention. Robotic assisted laparoscopic approach was described. Benefits and risks of the procedure including but not limited to bleeding, infection, injury to the biliary tree was described. Informed consent was obtained. DESCRIPTION OF PROCEDURE: Patient was brought to the operating room, placed in supine position. After general induction, the abdomen had been prepped and draped in standard sterile fashion. The robotic da Gilmar XI system was primed. After a timeout protocol was performed, the patient had been prepped and draped in standard sterile fashion. The patient was injected with indocyanine green. A 5 mm 0 degrees laparoscopic trocar entry was performed along the left upper quadrant. The abdomen insufflated to 15 mmHg pressure which was tolerated well. Diagnostic laparoscopy demonstrated no injury to bowel viscera or mesentery. The liver surface was remarkable for severe hepatomegaly with fatty liver disease. Due to these findings, intraoperative CBC and CMP were obtained. Next, two 8 mm robotic ports were placed along the right upper abdomen. The camera 8-mm port was maintained along the epigastrium. Another 8 mm port was placed along the left upper abdominal wall after exchanging the 5 mm port. Please note that the ports were placed at least 10 to 15 cm away from the target anatomy of the gallbladder. The robot was docked along the left lateral abdomen. The patient was repositioned in reverse Trendelenburg position. Using a grasper for arm 1, a grasper for arm 4, including hook cautery for arm 3, the robotic system was docked and primed as described. Instruments were interchanged by the supply chain assistant including hook cautery, Bovie cautery and clip appliers. I had sat at the console. The gallbladder was scarred with peritoneal adhesions. Lysis of adhesions was performed to free the gallbladder from the surrounding tissues. Next attention was brought to the infundibulum and cystic structures. The infundibulum and cystic duct were dissected free from surrounding tissues. The cystic duct was isolated. FIREFLY was used to identify the cystic artery and cystic structures. A critical view of safety was obtained. Large PLASTIC clips were used throughout the entire case. Using a clip trailer rental clerk, 3 clips were placed at the junction of the infundibulum and cystic duct. The cystic duct was divided between clips. Next, the cystic artery was similarly cauterized. A total of 2 clips were made at the hepatic fossa. Electro-Bovie cautery was used to remove the gallbladder from the hepatic fossa. Hemostasis was checked and found to be adequate. The robot was undocked. I re-scrubbed into the case. Using a 10 mm Endo Catch bag via the left upper quadrant incision, the specimen was removed from the abdominal cavity. All pneumoperitoneum instruments were evacuated from the abdominal cavity. The incisions were reapproximated using 4-0 Monocryl in an interrupted subcuticular fashion. Fascial defects were less than 8 mm in size. Please note along the trocar sites, local anesthetic was placed as a field block prior to insertion of all instruments. Liquid glue was applied to the skin. At the end of the procedure needle, sponge, and instrument count had been verified correct by the neurosurgical physician assistant. The patient was transferred to postanesthesia care unit in stable condition. Intraoperative films were shared with the patient's family. Plan - Discharge Summary Discharge Rx Participant: Yes New Discharge Prescriptions: New Simethicone [Gas-X] 125 mg PO AC-TID PRN #20 capsule PRN Reason: Pain Ibuprofen [Motrin] 600 mg PO Q8HR PRN #30 tab PRN Reason: Pain Continue Dextroamphetamine/Amphetamine [Adderall] 20 mg PO DAILY Discharge Medication List Dextroamphetamine/Amphetamine [Adderall] 20 mg PO DAILY 09/12/23 [History] Ibuprofen [Motrin] 600 mg PO Q8HR PRN #30 tab 02/05/25 [Rx] Simethicone [Gas-X] 125 mg PO AC-TID PRN #20 capsule 02/05/25 [Rx] Follow up Appointment(s)/Referral(s): Diana Irizarry MD [STAFF PHYSICIAN] - 02/09/25 6:15 am ([facility] - will call you at home) Patient Instructions/Handouts: *Surgery [facility] - (Anesthesia) Discharge Instructions Outpatient Surgery, Laparoscopic Cholecystectomy (DC) Activity/Diet/Wound Care/Special Instructions: [facility] - WILL CALL YOU BETWEEN 9 am to 8 pm NO LONG DRIVES OR AIRPLANE RIDES OVER 90 MINUTES FOR THE NEXT 2 WEEKS, February 19, DUE TO HIGH RISK OF PULMONARY EMBOLISM/DVTs May drive in 24 hrs Recommend low-fat diet for the next 2 days. No lifting over 10 pounds in 2 weeks until February 19November shower. No bath tub soaks for two weeks until February 19 Diet as tolerated. Use Tylenol, simethicone and ibuprofen or Aleve scheduled for the next 24-48 hours for best pain relief. Use ice along incisions for today to prevent swelling. Discharge Disposition: HOME SELF-CARE
[2025-02-05 11:04] LABS: ALT 16 U/L (4-34); AST 21 U/L (14-36); African American GFR (CKD) >90 (>60 ml/min/1.73 sqM); Albumin 3.7 g/dL (3.5-5.0); Alkaline Phosphatase 73 U/L (38-126); Anion Gap 10 mmol/L; Blood Urea Nitrogen 11 mg/dL (7-17); Calcium 8.9 mg/dL (8.4-10.2); Carbon Dioxide 22 mmol/L (22-30); Chloride 108 mmol/L (98-107); Glucose 142 mg/dL (74-99); Non-African American GFR(CKD) >90 (>60 ml/min/1.73 sqM); Potassium 4.6 mmol/L (3.5-5.1); Sodium 140 mmol/L (137-145); Total Protein 6.1 g/dL (6.3-8.2)
== END 2025-02-05 11:37 | disposition home or self-care (01) ==
LOC: OR 06:04
PROVIDERS: ATTEND Surgery Plastic and Reconstructive Surgery
DX: K80.10 Calculus of gallbladder with chronic cholecystitis without obstruction (principal); F90.9 Attention-deficit hyperactivity disorder, unspecified type; K21.9 Gastro-esophageal reflux disease without esophagitis; K76.0 Fatty (change of) liver, not elsewhere classified; F41.1 Generalized anxiety disorder; F17.210 Nicotine dependence, cigarettes, uncomplicated; Z90.710 Acquired absence of both cervix and uterus; Z88.8 Allergy status to other drugs, medicaments and biological substances; Z79.899 Other long term (current) drug therapy
CPT/HCPCS: 47562; S2900; 80053; 85025; 88304